=== PATIENT | female | born 1985 | race Caucasian/White ===

== ENCOUNTER → 2016-03-23 | Outpatient (CLI) | payer BC ==
[~2016-03-23] VITALS: Ht 160 cm; Wt 74.1 kg
[~2016-03-23] MED LIST: PRENATAL TABLE1 EAC3 PO
[2016-03-23 17:21] VITALS: BP 135/70
== END | disposition home or self-care (01) ==
LOC: IVINF 07:00
DX: O36.0920 Maternal care for other rhesus isoimmunization, second trimester, not applicable or unspecified (principal); Z3A.28 28 weeks gestation of pregnancy; Z67.21 Type B blood, Rh negative
CPT/HCPCS: 96372; J2790

== ENCOUNTER 2016-05-20 17:15 | Outpatient (CLI) | payer BC ==
[2016-05-20 17:44] VITALS: BP 144/100
[2016-05-20 17:59] LABS: EOSINOPHIL (%) 0.7 % (0-5); EOSINOPHIL COUNT 0.1 K/uL (0-0.3); IMMATURE GRANULOCYTE (%) 1.1 % (0.0-0.7); IMMATURE GRANULOCYTE COUNT 0.2 K/uL; INSTRUMENT ABS NEUTROPHIL CT 14.6 K/uL; MCHC 33.3 G/DL (30.0-36.0); MEAN PLAT.VOLUME 11.2 uM^3 (9.5-12.4); MONOCYTE (%) 5.1 % (3-12); MONOCYTE COUNT 0.9 K/uL (0-0.8); NEUTROPHIL (%) 81.9 % (45-76); NEUTROPHIL COUNT 14.6 K/uL (1.8-6.4); PLATELET COUNT 274 K/uL (156-360); RBC DIS.WIDTH-CV 13.2 % (11.8-14.6); RBC DIS.WIDTH-SD 43.2 % (39-53); WHITE BLOOD COUNT 17.9 K/uL (4.1-10.2)
[2016-05-20 18:07] LABS: CHLORIDE 108 mEq/L (99-109); POTASSIUM 4.1 mEq/L (3.7-5.4); SODIUM 136 mEq/L (136-147)
[2016-05-20 18:10] LABS: GLUCOSE 81 mg/dL (70-99)
[2016-05-20 18:11] LABS: ANION GAP 9 MEQ/L (2-14); TOTAL BILIRUBIN 0.2 mg/dL (0.0-1.0)
[2016-05-20 18:12] VITALS: BP 131/88
[2016-05-20 18:13] LABS: ALKALINE PHOSPHATASE 154 IU/L (3-129); GFR ESTIMATE (CALCULATED) > 59 mL/min/
[2016-05-20 18:14] LABS: UREA NITROGEN (BUN) 13 mg/dL (9-23)
[2016-05-20 18:33] LABS: UR CREATININE CONCENTRATION 45.6 MG/DL
[2016-05-20 18:37] VITALS: BP 146/87
[2016-05-21] MEDS ORDERED: PERCOCET 5/31 TABLET PO (12:49)
[2016-05-21] MEDS ORDERED: MOTRIN800 MG PO (12:49)
== END 2016-05-20 19:40 | disposition home or self-care (01) ==
LOC: LDRP-OP 17:15 → 2WEST 17:16 → LDRP-OP 07-11 12:00
PROVIDERS: Nurse Practitioner
DX: O13.3 Gestational [pregnancy-induced] hypertension without significant proteinuria, third trimester (principal); Z3A.36 36 weeks gestation of pregnancy
CPT/HCPCS: 59025; 80053; 82570; 84156; 85025; G0378

== ENCOUNTER 2016-05-21 04:33 | Inpatient (IN) | payer BC ==
[2016-05-21] VITALS (10 sets, daily range): BP systolic 128–167; BP diastolic 68–93
[~2016-05-21] VITALS: Ht 160 cm; Wt 95.9 kg
[2016-05-21 08:53] LABS: ANION GAP 11 MEQ/L (2-14); CHLORIDE 103 MEQ/L (99-109); POTASSIUM 3.9 MEQ/L (3.7-5.4); SAMPLE HEMOLYSIS CHECK 0; SAMPLE ICTERIC CHECK 0; SAMPLE LIPEMIA CHECK 0; SODIUM 136 MEQ/L (136-147); TOTAL BILIRUBIN 0.3 MG/DL (0.0-1.0)
[2016-05-21 08:58] LABS: ALKALINE PHOSPHATASE 160 IU/L (3-129); GFR ESTIMATE (CALCULATED) > 59 mL/min/; GLUCOSE 79 mg/dL (70-99); UREA NITROGEN (BUN) 14 mg/dL (9-23)
[2016-05-21] MEDS ORDERED: PERCOCET 5/31 TABLET PO (12:49)
[2016-05-21] MEDS ORDERED: MOTRIN800 MG PO (12:49)
[2016-05-21 12:50] LABS: BASOPHIL COUNT 0.1 K/uL (0-0.1); EOSINOPHIL (%) 0.4 % (0-5); EOSINOPHIL COUNT 0.1 K/uL (0-0.3); HEMATOCRIT 37.7 % (36.0-46.0); IMMATURE GRANULOCYTE (%) 1.2 % (0.0-0.7); IMMATURE GRANULOCYTE COUNT 0.2 K/uL; INSTRUMENT ABS NEUTROPHIL CT 15.4 K/uL; LYMPHOCYTE COUNT 1.8 K/uL (1.0-2.8); MCH 30.1 PG (29.0-34.0); MCHC 32.6 G/DL (30.0-36.0); MCV 92.2 FL (83-99); MEAN PLAT.VOLUME 11.3 uM^3 (9.5-12.4); MONOCYTE (%) 3.7 % (3-12); MONOCYTE COUNT 0.7 K/uL (0-0.8); NEUTROPHIL (%) 84.8 % (45-76); NEUTROPHIL COUNT 15.4 K/uL (1.8-6.4); PLATELET COUNT 286 K/uL (156-360); RBC DIS.WIDTH-CV 13.5 % (11.8-14.6); RBC DIS.WIDTH-SD 45.2 % (39-53); RED BLOOD COUNT 4.09 M/uL (3.80-5.20); WHITE BLOOD COUNT 18.2 K/uL (4.1-10.2)
[2016-05-22 07:05] VITALS: BP 116/56
[2016-05-22 07:24] LABS: EOSINOPHIL (%) 0.4 % (0-5); EOSINOPHIL COUNT 0.1 K/uL (0-0.3); HEMATOCRIT 29.9 % (36.0-46.0); IMMATURE GRANULOCYTE (%) 0.9 % (0.0-0.7); IMMATURE GRANULOCYTE COUNT 0.2 K/uL; INSTRUMENT ABS NEUTROPHIL CT 17.3 K/uL; LYMPHOCYTE COUNT 1.4 K/uL (1.0-2.8); MCH 29.9 PG (29.0-34.0); MCHC 32.4 G/DL (30.0-36.0); MCV 92.3 FL (83-99); MONOCYTE (%) 4.9 % (3-12); NEUTROPHIL (%) 86.8 % (45-76); NEUTROPHIL COUNT 17.3 K/uL (1.8-6.4); PLATELET COUNT 225 K/uL (156-360); RBC DIS.WIDTH-CV 13.6 % (11.8-14.6); RBC DIS.WIDTH-SD 45.9 % (39-53); WHITE BLOOD COUNT 19.9 K/uL (4.1-10.2)
[2016-05-22 07:30] LABS: RED BLOOD COUNT 3.24 M/uL (3.80-5.20)
[2016-05-22 10:45] VITALS: BP 114/63
[2016-05-22 14:43] VITALS: BP 127/58
[2016-05-22 19:00] VITALS: BP 154/83
[2016-05-22 19:52] VITALS: BP 144/73
[2016-05-22 23:00] VITALS: BP 0/0
[2016-05-23 02:38] VITALS: BP 140/78
[2016-05-23 08:18] VITALS: BP 126/72
[2016-05-23 10:43] VITALS: BP 137/75
[2016-05-23 14:38] VITALS: BP 133/72
[2016-05-23 23:18] VITALS: BP 128/81
[2016-05-24 06:24] VITALS: BP 123/73
[2016-05-24 22:21] VITALS: BP 142/86
[2016-05-25 07:11] VITALS: BP 137/88
== END 2016-05-25 14:20 | disposition home or self-care (01) | DRG 765 ==
LOC: LDRP-OP 04:33 → 2WEST 04:34 → LDRP-OP 07-11 21:25
PROVIDERS: Obstetrics & Gynecology
PROC: 10D00Z1 Extraction of Products of Conception, Low, Open Approach (ICD-10-PCS; principal; 2016-05-21)
DX: O32.1XX0 Maternal care for breech presentation, not applicable or unspecified (principal); D62 Acute posthemorrhagic anemia; O13.3 Gestational [pregnancy-induced] hypertension without significant proteinuria, third trimester; O41.03X0 Oligohydramnios, third trimester, not applicable or unspecified; O99.02 Anemia complicating childbirth; O99.824 Streptococcus B carrier state complicating childbirth; Z3A.37 37 weeks gestation of pregnancy; Z37.0 Single live birth
CPT/HCPCS: 80053; 83030; 85025; 86850; 86870; 86900; 86901; 86905; 86920; J0690; J2274; J2405; J2790; J7120

== ENCOUNTER → 2016-06-12 | Outpatient (CLI) | payer BC ==
[~2016-06-12] MED LIST changes: +MOTRIN800 MG PO; +PERCOCET 5/31 TABLET PO
== END | disposition home or self-care (01) ==
LOC: LAC 13:55
DX: O92.79 Other disorders of lactation (principal)
CPT/HCPCS: G0463